=== PATIENT | female | born 1980 | race Caucasian/White ===

== ENCOUNTER 2019-01-17 10:48 | Outpatient (REF) | payer OTHER, SELFPAY ==
[2019-01-18 13:56] LABS: Chlamydia Result Negative (Negative); GC Result Negative (Negative); Specimen Description CERVIX
== END 2019-01-17 11:08 ==
LOC: LBN 10:48
PROVIDERS: Visit Provider Nurse Practitioner Family
DX: Z11.3 Encounter for screening for infections with a predominantly sexual mode of transmission (principal)
CPT/HCPCS: 87491; 87591

== ENCOUNTER 2019-02-14 01:15 | Outpatient (CLI) | payer OTHER, SELFPAY ==
--- NOTE | 2019-02-14 10:00 | DI.MAMMO_ITS ---
EXAM: MG MAMMO SCREENING CLINICAL HISTORY: Screening,z12.39 TECHNIQUE: Bilateral full field digital CC and MLO mammographic images were obtained with 3D tomosyn thesis and utilizing computer aided detection (CAD). COMPARISON: No previous for comparison. This is a baseline examination. FINDINGS: Masses/Architectural Distortion: There is a well-circumscribed nodule in the upper-outer quadrant of the left breast. This should be further evaluated with additional views of the left breast and left breast ultrasound. Microcalcifications: No suspicious pleomorphic-type are seen. Skin Thickening/Nipple Retraction: None. IMPRESSION: 1. Well-circumscribed nodule in the upper outer quadrant of the left breast. This area should be fur ther evaluated with a spot compression view and a left breast ultrasound. BI-RADS Cat 0 - Assessment Incomplete: Need additional imaging evaluation Breast Density - Category C - Heterogeneously dense The mammogram demonstrates the patient's breast tissue is dense. Dense breast tissue is very common a nd is not abnormal but dense breast tissue can make it harder to find cancer on a mammogram. Also, de nse breast tissue may increase their breast cancer risk. This information about the result of the [facility] mogram report was provided to the patient to raise their awareness. Use this report when you speak wi th the patient about their risks for breast cancer, which includes their family history. At that time , you may recommend for more screening tests (Ultrasound or MRI) as they might be useful based on the ir risk. A negative radiographic report should not delay biopsy if a dominant or clinically suspicious mass is present. Up to ten percent of cancers are not identified on mammography. A negative report may reinforce clinical impression. Adenosis and dense breasts may obscure an underlying neoplasm. False positive reports average 6 to 10%. Patient will receive a letter notifying them of these results.
== END 2019-02-14 01:35 ==
PROVIDERS: Visit Provider Nurse Practitioner Family
DX: Z12.31 Encounter for screening mammogram for malignant neoplasm of breast (principal); R92.8 Other abnormal and inconclusive findings on diagnostic imaging of breast
CPT/HCPCS: 77063; 77067

== ENCOUNTER 2019-02-16 00:34 | Outpatient (CLI) | payer OTHER, SELFPAY ==
--- NOTE | 2019-02-16 10:00 | DI.US_ITS ---
EXAM: US BREAST LT LIMITED and additional views of the left breast CLINICAL HISTORY: NODULE UPPER OUTER QUAD LT BREAST, US RECOMMENDED TECHNIQUE: Ultrasound performed using standard protocol. Additional mammographic views of the left breast were obtained. COMPARISON: Priors for comparison FINDINGS: Left mammogram: Additional mammographic views of the left breast again shown an obscured, well-circumscribed nodule i n the upper-outer quadrant of the left breast. Left breast ultrasound: There is a 1.8 cm simple cyst at the 2 o'clock position of the left breast, 5 cm from the nipple. Th is would correspond to the mammographic abnormality. No suspicious solid mass is identified. IMPRESSION: 1. 1.8 cm simple cyst in the left breast corresponding to the mammographic abnormality. 2. No evidence for malignancy. Yearly mammography is recommended. BI-RADS Cat 2 - Benign Findings Breast Density - Category C - Heterogeneously dense The findings were discussed with the patient on the date of the examination.
== END 2019-02-16 00:54 ==
PROVIDERS: Visit Provider Nurse Practitioner Family
DX: Z12.31 Encounter for screening mammogram for malignant neoplasm of breast (principal); R92.8 Other abnormal and inconclusive findings on diagnostic imaging of breast; N63.21 Unspecified lump in the left breast, upper outer quadrant; N60.02 Solitary cyst of left breast
CPT/HCPCS: 76642; 77063; 77067

== ENCOUNTER 2020-01-23 16:03 | Outpatient (REF) | payer OTHER, SELFPAY ==
--- NOTE | 2020-01-23 15:45 | PAPFT_PTH ---
PATIENT: Dania Traylor LOC: [facility] U#:[id number] AGE/SX: 39/F ROOM: RE01/23/[address]: ANUSHKA Benton : 1980 BED: DIS: 01/23/2020 SPEC #: [id number] RECD: 01/23/20 18:29 STATUS: DAVID RERichard #: [id number] BRADY: 01/23/20 15:[address]: Fatimah Macdonald DEPT: [facility] Cytology RECD BY: Milagros Neil Tissues: 1 - CX/ENDOCX FOR PAP SMEARS Procedures: PAP THIN PREP/UVM Screening HPV DNA PROBE Comments: [id number]
== END 2020-01-23 16:23 ==
LOC: LBN 16:03
PROVIDERS: Visit Provider Nurse Practitioner Family
DX: Z12.4 Encounter for screening for malignant neoplasm of cervix (principal); Z11.51 Encounter for screening for human papillomavirus (HPV); Z97.5 Presence of (intrauterine) contraceptive device
CPT/HCPCS: 88142; 87624

== ENCOUNTER 2020-02-24 04:23 | Outpatient (CLI) | payer OTHER, SELFPAY ==
--- NOTE | 2020-02-24 | DI.MAMMO_ITS ---
EXAM: MG MAMMO SCREENING CLINICAL HISTORY: SCREENING,Z12.39 TECHNIQUE: Bilateral full field digital CC and MLO mammographic images were obtained with 3D tomosyn thesis and utilizing computer aided detection (CAD). COMPARISON: Available for comparison. FINDINGS: Masses/Architectural Distortion: Stable well-circumscribed mass in the upper-outer quadrant of the le ft breast previously shown to be a cyst. No suspicious masses. Microcalcifications: No suspicious pleomorphic-type are seen. Skin Thickening/Nipple Retraction: None. IMPRESSION: 1. No significant interval change with no specific features of malignancy noted. 2. Unless there is more urgent need, screening mammography is recommended, as per [employer] guidelines. BI-RADS Category 2 - Benign Findings Breast Density - Category C - Heterogeneously dense The mammogram demonstrates the patient's breast tissue is dense. Dense breast tissue is very common a nd is not abnormal but dense breast tissue can make it harder to find cancer on a mammogram. Also, de nse breast tissue may increase their breast cancer risk. [facility] the patient to raise their awareness. Use this report when you speak wi th the patient about their risks for breast cancer, which includes their family history. At that time , you may recommend for more screening tests (Ultrasound or MRI) as they might be useful based on the ir risk. A negative radiographic report should not delay biopsy if a dominant or clinically suspicious mass is present. Up to ten percent of cancers are not identified on mammography. A negative report may reinforce clinical impression. Adenosis and dense breasts may obscure an underlying neoplasm. False positive reports average 6 to 10%. Patient will receive a letter notifying them of these results.
== END 2020-02-24 04:43 ==
PROVIDERS: PCP Family Medicine; Visit Provider Nurse Practitioner Family
DX: Z12.31 Encounter for screening mammogram for malignant neoplasm of breast (principal); N60.02 Solitary cyst of left breast
CPT/HCPCS: 77063; 77067

== ENCOUNTER 2021-01-14 00:41 | Outpatient (CLI) | payer OTHER, SELFPAY ==
--- NOTE | 2021-01-14 07:00 | DI.MAMMO_ITS ---
Exam(s) MAMMO DIAGNOSTIC BI EXAM: MAMMO DIAGNOSTIC BI CLINICAL HISTORY: Dense breast tissue. lump 3 o'clock, left brEAST,N63.0. TECHNIQUE: Unilateral spot mammographic images were obtained with 3D tomosynthesis technique and uti lizing computer aided detection (CAD). COMPARISON: Prior mammograms dating back to 2018, the most recent being February 2020. FINDINGS: Fibroglandular tissue pattern is again noted be dense, this decreasing the sensitivity mammogram for finding in underlying lesions. Towards the lateral aspect of the left breast there is a noncalcified lobulated nodule measuring appr oximately 2.9 by 2.4 cm, located 5 cm in from the nipple, slightly more prominent on the prior study. Ultrasound recommended. No other obvious mammographic findings in left breast. No significant focal findings in the right breast. No new malignant-appearing microcalcification nano ups in either breast. No new architectural distortion or skin thickening-traction IMPRESSION: Dense bilateral fibroglandular tissue. 29 x 24 millimeter asymmetric density left breast. This finding is shown to be a simple cyst on ultrasound exam performed 01/15/2021. See that separate ultrasound report. Appropriate follow-up is repeat breast ultrasound in 6 months. At that time I recommend that this be a bilateral ultrasound study given the density of her fibroglandular tissue. The patient was informed of the findings and follow-up recommendations prior to leaving the [facility]. BI-RADS Category 3 - 6 month - Probably Benign Finding: Recommend follow-up mammography in 6 months Breast Density - Category C - Heterogeneously dense Breast density Category C or D implies that the patient has dense breast tissue. Dense breast tissue can make it harder to find cancer on a mammogram. Dense breast tissue is also associated with an incr eased risk of breast cancer. This information about the result of the mammogram report was provided to the patient to raise their awareness. Use this report when you speak with the patient about their risks for breast cancer, which includes their family history. At that time, you may recommend additional screening tests (Ultrasoun d or MRI) as these tests may add significant information. A negative radiographic report should not delay biopsy if a dominant or clinically suspicious mass is present. Up to ten percent of cancers are not identified on mammography. A negative report may reinforce clinical impression. Adenosis and dense breasts may obscure an underlying neoplasm. False positive reports average 6 to 10%. Patient will receive a letter notifying them of these results.
== END 2021-01-14 01:01 ==
PROVIDERS: PCP Physician Assistant; Visit Provider Obstetrics & Gynecology
DX: R92.8 Other abnormal and inconclusive findings on diagnostic imaging of breast (principal); N63.21 Unspecified lump in the left breast, upper outer quadrant
CPT/HCPCS: 77062; 77066; G0279

== ENCOUNTER 2021-09-02 08:26 | Emergency (ER) | payer BC, SELFPAY ==
[2021-09-02 08:30] VITALS: BP 136/64; PULSE 74; RESP 16; TEMP 36.8; O2SAT 100
--- NOTE | 2021-09-02 09:16 | ED.GENADUL_ITS ---
Discharge Plan Disposition Patient Disposition: HOME Condition: Good Discharge Details Clinical Impression: Back pain Primary Care Provider: Chapo Smith ED Provider: Milagros Nolan Home Meds and New Rx's Prescriptions: New cyclobenzaprine 10 mg tablet 10 mg PO BID PRNQty: 10 0RF ondansetron HCl 4 mg tablet 4 mg PO Q6H PRNQty: 10 0RF Continued Mirena 20 mcg/24 hours (5 yrs) 52 mg intrauterine device 1 device IY ONCE clotrimazole-betamethasone 1-0.05 % cream 1 applic topical BID 10 Days Qty: 15 2RF One Daily For Women 1 EACH tablet 1 ea PO DAILY Discharge Instructions Instructions: Back Pain (ED) Additional Instructions: Take ibuprofen and Tylenol as needed for pain Take Zofran as needed for nausea and vomiting Take Flexeril as needed for musculoskeletal pain Take oxycodone sparingly, you may take this if you have severe pain, it is addictive and you should not drive for 8 hours after taking please follow-up with your primary care physician for reassessment in 24 to 48 hours and return earlier should you have new or worsening complaints Medical Decision Making Patient appears well, she is in no acute distress and her lab are reassuring Urinalysis does not show evidence of infection, will send for culture CT abdomen and pelvis do not show evidence of acute abnormality, suspect musculoskeletal etiology of pain Dextran for muscle relaxants will continue to take ibuprofen and Tylenol Recheck in 24 to 48 hours recommended Return precautions discussed and patient expressed understanding Afebrile and nontoxic HPI General Date/Time Provider Initiated Documentation: 09/02/21 08:27 . HPI Narrative: This otherwise healthy 41-year-old female presents with report of nausea for the past 2 weeks and left flank pain that started on of this week. Patient states that is constant pain throughout the day and at night reportedly feels like contractions. Denies known exacerbating or alleviating factors. Denies prior history of similar symptoms in the past. Denies any radiation of pain. Denies hepatitis C. Denies fever or chills. Denies hematuria Does report urinary frequency. No midline back pain, no history of IV drug abuse. Related Data Home Medications Medication Instructions Recorded Confirmed hvluqsjp-ykwf-pjp-folic acid 18 1 ea PO DAILY 12/02/12 09/02/21 mg-0.4 mg tablet (One Daily For Women) levonorgestrel 20 mcg/24 hours (7 1 device intrauterine ONCE 01/17/19 09/02/21 yrs) 52 mg intrauterine device (Mirena) clotrimazole-betamethasone 1 1 applic topical BID 10 days #15 01/23/20 09/02/21 %-0.05 % topical cream grams cyclobenzaprine 10 mg tablet 10 mg PO BID PRN #10 tabs 09/02/21 ondansetron HCl 4 mg tablet 4 mg PO Q6H PRN #10 tabs 09/02/21 Previous Rx's Medication Instructions Recorded clotrimazole-betamethasone 1 1 applic topical BID 10 days #15 01/23/20 %-0.05 % topical cream grams cyclobenzaprine 10 mg tablet 10 mg PO BID PRN #10 tabs 09/02/21 ondansetron HCl 4 mg tablet 4 mg PO Q6H PRN #10 tabs 09/02/21 Allergies Allergy/AdvReac Type Severity Reaction Status Date / Time sulfamethoxazole Allergy Intermediate RASH, Verified 09/02/21 08:34 [From Bactrim] YEAST INFECTION trimethoprim [From Bactrim] Allergy Intermediate RASH, Verified 09/02/21 08:34 YEAST INFECTION amoxicillin Allergy Verified 09/02/21 08:34 hydrocodone AdvReac Severe made me Verified 09/02/21 08:34 freak out General Stated Complaint: FlankPain IDRIS: 4 Review of Systems All systems reviewed & are unremarkable except as noted in HPI and below PFSH All Active Problems (Updated 09/02/21 @ 10:17 by VIVIAN Rolon) Back pain (Acute) Breast lump in female (Acute) 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 Father IBD (inflammatory bowel disease) Social History Smoking/Tobacco Use Status: Never Smoking risk assessment performed?: Yes Alcohol Intake: current Alcohol Intake frequency: holidays/special occasions o nly Alcohol type: beer and wine Drug use: Never Substance use type: does not use Current gender identity: female Seatbelt use: always Do you feel safe at home: Yes Do you feel safe in your relationship?: Yes Female Reproductive History Menstrual control method: progestin IUCD History History 1 Para Hx # Term Pregnancies 1 Multiple births Hx # Pregnancies Ectopic pregnancies AB induced Hx Number of Living Children AB spontaneous Exam Const General: cooperative, comfortable and no acute distress Eyes Sclera: sclerae normal Resp Effort & Inspection: normal respiratory effort Cardio Rate: regular rate Rhythm: regular rhythm GI Other: No abdominal bruit or pulsatile mass No CVA tenderness, no left upper quadrant tenderness No rashes or lesions Back/Spine/Pelvis Other: No paraspinal tenderness No midline tenderness Skin General skin exam: no rashes or lesions noted Neuro General: patient alert and patient oriented x3 Motor: strength 5/5 throughout Sensory Exam: no sensory deficits noted Other: Negative straight leg raise bilaterally Extrem Other: Distal pulses intact Course Vital Signs Vital signs: Vital Signs Temperature 36.8 C 09/02/21 08:30 Pulse 74 09/02/21 08:30 Respiratory Rate 16 09/02/21 08:30 Blood Pressure 136/64 09/02/21 08:30 Pulse Oximetry 100 09/02/21 08:30 Temperature 36.8 C 09/02/21 08:30 Temperature Source Temporal Artery Scan 09/02/21 08:30 Pulse 74 09/02/21 08:30 Respiratory Rate 16 09/02/21 08:30 Respiratory Effort Non-Labored 09/02/21 08:33 Blood Pressure 136/64 09/02/21 08:30 Blood Pressure Position Sitting 09/02/21 08:30 Pulse Oximetry 100 09/02/21 08:30 Oxygen Delivery Method Room Air 09/02/21 08:30 Oxygen Flow Rate 0 09/02/21 08:30 Pain Level 8 09/02/21 08:56 PAWSS Have you Been Recently Intoxicated or Drunk Within the Last 30 days?: No Have you Ever Experienced Previous Episodes of Alcohol Withdrawal?: No Have you ever Experienced Withdrawal Seizures?: No Have you ever Experienced Delirium Tremens(DT)s?: No Have you ever undergone Alcohol Rehabilitation Treatment (i.e, inpt ot outpatient treatment programs)?: No Have you ever Experienced Blackouts?: No Have you ever Combined Alcohol with other Downers within the last 90 days?: No Have you ever Combined Alcohol with any other Substance of Abuse during the last 90 days?: No Positive Blood Alcohol level on Presentation? [PCS.BAL]: No Evidence of Increased Autonomic Activity (i.e. HR>120, tremor, sweating, agitation, nausea)?: No Result: 0
[2021-09-02 09:18] LABS: Bilirubin Negative (Negative); Blood Trace-intact (Negative); Clarity Clear (Clear); Glucose Negative (Negative); Ketones Negative (Negative); Leukocyte Esterase Trace (Negative); Nitrite Negative (Negative); Specific Gravity 1.015 (1.005-1.025); Urobilinogen 0.2 EU/dL (Up TO 0.2)
[2021-09-02 09:25] LABS: Bacteria Negative HPF (Negative); C & S Indicated? Yes; Casts Negative LPF (Negative); Crystals Negative HPF (Negative); Epithelial Cells Rare HPF (Negative); Mucus Negative (Negative); RBC 0-2 HPF (0-2); WBC 0-2 HPF (0-5)
[2021-09-02] MEDS: Lactated Ringers 1,000 ML 1000 ML IV (09:26)
[2021-09-02] MEDS: Ondansetron 4 MG/2 ML VIAL IVP (09:26)
[2021-09-02 09:28] LABS: Abs Immature Grans 0.01 10^3/uL (0.0-0.06); Absolute Basophil Count 0.04 10^3/uL (0.0-0.2); Absolute Eosinophil Count 0.09 10^3/uL (0.0-0.7); Absolute Lymphocyte Count 1.82 10^3/uL (1.2-3.4); Absolute Monocyte Count 0.45 10^3/uL (0.1-0.8); Absolute Neutrophil Count 3.52 10^3/uL (1.2-6.7); Basophils % 0.7; Eosinophils % 1.5; HCT 44.3 % (36.0-46.0); HGB 14.6 g/dL (11.2-15.7); Immature Grans % 0.2; Lymphocytes % 30.7; MCH 29.7 pg (27.0-33.0); MCV 90 fL (80-95); MPV 10.9 fL (8.0-11.0); Monocytes % 7.6; Neutrophils % 59.3; Platelet Count 209 10^3/uL (130-400); RBC 4.91 10^6/uL (3.93-5.22); RDW 12.5 % (11.7-14.6); RDW-SD 41.5 fL; WBC 5.93 10^3/uL (4.4-10.8)
--- NOTE | 2021-09-02 09:39 | DI.CT_ITS ---
Exam(s) CT ABDOMEN PELVIS WO EXAM: CT ABDOMEN PELVIS WO CLINICAL HISTORY: left flank pain. TECHNIQUE: Imaging Protocol: Axial computed tomography images with coronal and sagittal reformatted images were created and reviewed. COMPARISON: No priors for comparison. FINDINGS: ABDOMEN: Lung Bases: Normal where visualized. Liver: Normal density. No measurable mass. Gallbladder and biliary tract: No radiodense calculus or biliary ductal dilation. Pancreas: Normal density, no abnormal calcifications or inflammatory process. Spleen: Normal. Kidneys: Normal size, contour and axis.No radiodense stones or obstructive uropathy. No masses seen. Adrenal glands: No mass is seen. Lymph nodes: Within normal limits. Abdominal Aorta: Abdominal portion non-dilated. PELVIS: Bladder:Symmetric distention, no gross wall thickening. Bowel: No obstruction or bowel wall thickening. Appendix is unremarkable. Peritoneal cavity: There is a trace amount of free fluid in the pelvis which may be physiologic. No free air. Reproductive organs: There is an IUD in good position. Bones: Within normal limits. Soft Tissues: Within normal limits. IMPRESSION: No acute abdominal or pelvic process. RADIATION DOSE DELIVERED: 750.59mGy.cm Total DLP DATA REPOSITORY: All CT scans at this facility are submitted to the National Radiology Data Registry (NRDR) Dose Index Registry (DIR) with the [employer] (ACR). RADIATION OPTIMIZATION: All CT scans at this facility use at least one of these dose optimization te chniques: automated exposure control; mA and/or kV adjustment per patient size (includes targeted exa ms where dose is matched to clinical indication); or iterative reconstruction.
[2021-09-02 09:41] LABS: ALT 26 U/L (14-59); AST 16 U/L (15-37); Albumin 4.2 g/dL (3.4-5.0); Alkaline Phosphatase 52 U/L (46-116); Anion Gap 8.8 mmol/L (3-11); BUN 9 mg/dL (7-18); Bilirubin, Total 0.6 mg/dL (0.2-1.0); CO2 25.2 mmol/L (21.0-32.0); CREATININE 0.9 mg/dL (0.55-1.02); Calcium 8.7 mg/dL (8.5-10.1); Chloride 110 mmol/L (98-107); Glucose 119 mg/dL (74-106); Lipase 76 U/L (73-393); Potassium 3.8 mmol/L (3.5-5.1); Sodium 144 mmol/L (136-145); Total Protein 7.3 g/dL (6.4-8.2)
--- NOTE | 2021-09-02 09:55 | DI.VRAD_ITS ---
PROCEDURE INFORMATION: Exam: CT Abdomen And Pelvis Without Contrast Exam date and time: 09/02/2021 9:32 AM Age: 41 years old Clinical indication: Abdominal pain; Patient HX: Left flank pain since . TECHNIQUE: Imaging protocol: Computed tomography of the abdomen and pelvis without contrast. Radiation optimization: All CT scans at this facility use at least one of these dose optimization techniques: automated exposure control; mA and/or kV adjustment per patient size (includes targeted exams where dose is matched to clinical indication); or iterative reconstruction. COMPARISON: No relevant prior studies available. FINDINGS: Tubes, catheters and devices: Intrauterine device is present. Liver: Normal. No mass. Gallbladder and bile ducts: Normal. No calcified stones. No ductal dilation. Pancreas: Normal. No ductal dilation. Spleen: Normal. No splenomegaly. Adrenal glands: Normal. No mass. Kidneys and ureters: Normal. No hydronephrosis. Stomach and bowel: Unremarkable. No obstruction. No mucosal thickening. Appendix: No evidence of appendicitis. Intraperitoneal space: Unremarkable. No free air. No significant fluid collection. Vasculature: Unremarkable. No abdominal aortic aneurysm. Lymph nodes: Unremarkable. No enlarged lymph nodes. Urinary bladder: Unremarkable as visualized. Reproductive: Unremarkable as visualized. Bones/joints: Unremarkable. No acute fracture. Soft tissues: Unremarkable. IMPRESSION: No acute findings are evident. Dictated and Authenticated by: Piotr Hernández MD. Ordering:SHABBIR Linares MD
[2021-09-02 10:16] VITALS: BP 122/75; PULSE 62; RESP 16; TEMP 37.2; O2SAT 100
[2021-09-02 10:34] VITALS: BP 122/75; PULSE 62; RESP 16; TEMP 37.2; O2SAT 100
== END 2021-09-02 10:39 | disposition home or self-care (01) ==
PROVIDERS: Emergency Provider Physician Assistant; PCP Physician Assistant
DX: M54.9 Dorsalgia, unspecified (principal); R10.9 Unspecified abdominal pain
CPT/HCPCS: 36415; 80053; 81025; 83690; 96361; 96374; 99284; 74176; 81003; 81015; 85025; 87086; J2405

== ENCOUNTER → 2022-02-04 02:17 | Outpatient (CLI) | payer BC, SELFPAY ==
--- NOTE | 2022-02-04 15:15 | DI.MAMMO_ITS ---
Exam(s) MAMMO SCREENING EXAM: MAMMO SCREENING CLINICAL HISTORY: screening. TECHNIQUE: Bilateral full field digital CC and MLO mammographic images were obtained with 3D tomosyn thesis and utilizing computer aided detection (CAD). COMPARISON: Prior mammograms were reviewed. Prior ultrasound examinations also reviewed. FINDINGS: Fibroglandular tissue pattern is again noted be dense, this somewhat decreasing the sensitivity of th e mammogram for finding hidden underlying lesions. There are no new significant findings in left breast. Nodular density in the left breast has signifi cantly decreased in size, consistent with cyst. In the right breast on the 3D MLO imaging there is a subtle suggestion of a new asymmetric density-no dule which measures approximately the 1.5 x 1 0.1 cm and is located approximately 3 cm in from the ni pple. Spot compression view/ultrasound recommended. There are no malignant-appearing microcalcification groups is region. There is no significant architectural distortion nor skin thickening-retraction. IMPRESSION: Dense bilateral fibroglandular tissue. No obvious radiographic evidence of malignancy in left breast . New asymmetric density right breast as described above. Right breast spot compression MLO view an d possible ultrasound recommended. BI-RADS Category 0 - Assessment Incomplete: Need additional imaging evaluation Breast Density - Category C - Heterogeneously dense Breast density Category C or D implies that the patient has dense breast tissue. Dense breast tissue can make it harder to find cancer on a mammogram. Dense breast tissue is also associated with an incr eased risk of breast cancer. This information about the result of the mammogram report was provided to the patient to raise their awareness. Use this report when you speak with the patient about their risks for breast cancer, which includes their family history. At that time, you may recommend additional screening tests (Ultrasoun d or MRI) as these tests may add significant information. A negative radiographic report should not delay biopsy if a dominant or clinically suspicious mass is present. Up to ten percent of cancers are not identified on mammography. A negative report may reinforce clinical impression. Adenosis and dense breasts may obscure an underlying neoplasm. False positive reports average 6 to 10%. Patient will receive a letter notifying them of these results.
== END ==
PROVIDERS: PCP Physician Assistant; Visit Provider Obstetrics & Gynecology
DX: Z12.31 Encounter for screening mammogram for malignant neoplasm of breast (principal); R92.8 Other abnormal and inconclusive findings on diagnostic imaging of breast
CPT/HCPCS: 77063; 77067

== ENCOUNTER → 2022-02-07 01:05 | Outpatient (CLI) | payer BC, SELFPAY ==
--- NOTE | 2022-02-07 | DI.US_ITS ---
Exam(s) MAMMO SCREEN CALL BACK UNI US BREAST RT COMPLETE EXAM: MAMMO SCREEN CALL BACK UNI-RIGHT AND COMPLETE RIGHT BREAST ULTRASOUND CLINICAL HISTORY: F/U MAMMO, NEW ASYMMETRIC SCHEDULING,NODULE. TECHNIQUE: Unilateral spot mammographic images obtained with 3D tomosynthesisand utilizing computer aided detection (CAD). . Complete right breast Ultrasound was also performed, including all 4 quadrants, the retroareolar krishan on, and the ipsilateral axilla. COMPARISON: Prior mammograms were reviewed. This additional imaging was performed due to findings described on the recent screening mammogram of 02/04/2022. FINDINGS: DIAGNOSTIC MAMMOGRAM: Additional mammographic views performed todaya somewhat equivocal. We proceeded with ultrasound. COMPLETE RIGHT BREAST ULTRASOUND: Ultrasound performed today reveals a solitary finding at the 6 o'clock position which corresponds to the finding on the mammogram.. This has the appearance of a 9 by 3 millimeter septated cyst. There are no other focal ultrasound findings in all 4 quadrants. Scanning of the ipsilateral axilla reveals no significant adenopathy. IMPRESSION: 1. Benign-appearing finding at the 6 o'clock position of the right breast as described above. Appropriate follow-up , as discussed by myself with the patient today, is repeat right breast imaging in 6 months. The patient was informed of these findings and recommendations prior to leaving the department today. BI-RADS Category 3 - 6 month - Probably Benign Finding: Recommend follow-up mammography in 6 months Breast Density - Category C - Heterogeneously dense Breast density Category C or D implies that the patient has dense breast tissue. Dense breast tissue can make it harder to find cancer on a mammogram. Dense breast tissue is also associated with an incr eased risk of breast cancer. This information about the result of the mammogram report was provided to the patient to raise their awareness. Use this report when you speak with the patient about their risks for breast cancer, which includes their family history. At that time, you may recommend additional screening tests (Ultrasoun d or MRI) as these tests may add significant information. A negative radiographic report should not delay biopsy if a dominant or clinically suspicious mass is present. Up to ten percent of cancers are not identified on mammography. A negative report may reinforce clinical impression. Adenosis and dense breasts may obscure an underlying neoplasm. False positive reports average 6 to 10%. Patient will receive a letter notifying them of these results.
== END ==
PROVIDERS: PCP Physician Assistant; Visit Provider Obstetrics & Gynecology
DX: Z12.31 Encounter for screening mammogram for malignant neoplasm of breast (principal); R92.8 Other abnormal and inconclusive findings on diagnostic imaging of breast
CPT/HCPCS: 76642; 77063; 77067

== ENCOUNTER 2022-08-05 02:32 | Outpatient (CLI) | payer BC, SELFPAY ==
--- NOTE | 2022-08-05 | DI.MAMMO_ITS ---
Exam(s) MG MAMMO DIAGNOSTIC UNI US BREAST RT COMPLETE EXAM: MG MAMMO DIAGNOSTIC UNI -RIGHT AND COMPLETE RIGHT BREAST ULTRASOUND CLINICAL HISTORY: F/U ABNL MAMMO, R92.8,RT BREAST CYST. TECHNIQUE: Both CC and MLO right breast mammographic images were obtained with 3D tomosynthesis tech nique and utilizing computer aided detection (CAD). Also performed complete right breast ultrasound including all 4 quadrants as well as the axillary reg ion COMPARISON: Prior mammograms were reviewed, the most recent being February 2022. Prior ultrasound 02/07/2022 also reviewed FINDINGS: DIAGNOSTIC RIGHT BREAST MAMMOGRAM: The fibroglandular tissue is again noted be dense. no obvious discernible masses nor malignant-appea ring microcalcification groups. No new architectural distortion or skin thickening-traction. COMPLETE RIGHT BREAST ULTRASOUND: The previously described finding at the 6 o'clock position is again noted, measuring 7 x 4 millimeter s and has the appearance of a benign microcyst. There is a new finding at the 12 o'clock position which is a 5 x 3 millimeter benign microcyst. No solid lesions seen in all 4 quadrants. Scanning of the right axilla is negative for adenopathy. IMPRESSION: 1. Dense fibroglandular tissue. No radiographic evidence of malignancy. 2. Two benign microcysts seen at 12 o'clock and 6 o'clock positions on ultrasound. No solid lesions Appropriate follow-up as discussed by myself with the patient today is to keep her on a yearly mammog elisa schedule, this implying that her next bilateral mammogram would be in 6 months. At that time elizabeth ateral breast ultrasound should be performed, given the density of her fibroglandular tissue and the fact that there are findings on ultrasound exam which are not visible on 3D mammography. The patient was informed of the findings and follow-up recommendations by myself prior to leaving the department today. BI-RADS Category 2 - Benign Findings Breast Density - Category C - Heterogeneously dense Breast density Category C or D implies that the patient has dense breast tissue. Dense breast tissue can make it harder to find cancer on a mammogram. Dense breast tissue is also associated with an incr eased risk of breast cancer. This information about the result of the mammogram report was provided to the patient to raise their awareness. Use this report when you speak with the patient about their risks for breast cancer, which includes their family history. At that time, you may recommend additional screening tests (Ultrasoun d or MRI) as these tests may add significant information. A negative radiographic report should not delay biopsy if a dominant or clinically suspicious mass is present. Up to ten percent of cancers are not identified on mammography. A negative report may reinforce clinical impression. Adenosis and dense breasts may obscure an underlying neoplasm. False positive reports average 6 to 10%. Patient will receive a letter notifying them of these results.
== END 2022-08-05 02:52 ==
PROVIDERS: PCP Physician Assistant; Visit Provider Obstetrics & Gynecology
DX: R92.8 Other abnormal and inconclusive findings on diagnostic imaging of breast (principal)
CPT/HCPCS: 76642; 77061; 77065; G0279

== ENCOUNTER → 2023-02-05 01:04 | Outpatient (CLI) | payer BC, SELFPAY ==
--- NOTE | 2023-02-05 08:27 | DI.US_ITS ---
Exam(s) US BREAST RT LIMITED MG MAMMO SCREENING EXAM: MG MAMMO SCREENING and U/S breast RT limited CLINICAL HISTORY: screening,Z12.39. TECHNIQUE: Craniocaudal and mediolateral oblique Full Field Digital Mammography views of the bilater al breast with Computer Aided Diagnosis followed by Tomosynthesis and right breast ultrasound. COMPARISON: Comparison is made with prior examinations. FINDINGS: Mammography/Tomosynthesis: Masses/Architectural Distortion: None seen. Microcalcifictions: No suspicious pleomorphic-type are seen. Skin Thickening/Nipple Retraction: None. Limited right breast US: Echotexture: Normal appearance of the glandular tissue. Shadowing: No suspicious foci. Cyst: There are stable cysts again seen at the 6 and 12 o'clock positions. They are unchanged. Solid lesions: None seen. Ductal dilation: None. IMPRESSION: 1. No evidence of malignancy is noted. 2. Unless there is more urgent need, follow-up screening mammography is recommended, as per [place] [employer] guidelines. 3. The findings were discussed with the patient on the date of the examination. BI-RADS Category 2 - Benign Findings Breast Density - Category C - Heterogeneously dense Breast density Category C or D implies that the patient has dense breast tissue. Dense breast tissue can make it harder to find cancer on a mammogram. Dense breast tissue is also associated with an incr eased risk of breast cancer. This information about the result of the mammogram report was provided to the patient to raise their awareness. Use this report when you speak with the patient about their risks for breast cancer, which includes their family history. At that time, you may recommend additional screening tests (Ultrasoun d or MRI) as these tests may add significant information. A negative radiographic report should not delay biopsy if a dominant or clinically suspicious mass is present. Up to ten percent of cancers are not identified on mammography. A negative report may reinforce clinical impression. Adenosis and dense breasts may obscure an underlying neoplasm. False positive reports average 6 to 10%. Patient will receive a letter notifying them of these results.
== END ==
PROVIDERS: PCP Physician Assistant; Visit Provider Obstetrics & Gynecology
DX: Z12.31 Encounter for screening mammogram for malignant neoplasm of breast; R82.89 Other abnormal findings on cytological and histological examination of urine
CPT/HCPCS: 76642; 77063; 77067

== ENCOUNTER 2023-09-07 12:33 | Outpatient (REF) | payer BC, SELFPAY ==
[2023-09-07 15:48] LABS: HCT 43.7 % (36.0-46.0); HGB 15.1 g/dL (11.2-15.7); MCH 30.8 pg (27.0-33.0); MCHC 34.6 % (32.0-36.0); MCV 89 fL (80-95); MPV 12.3 fL (8.0-11.0); Platelet Count 247 10^3/uL (130-400); RDW 12.6 % (11.7-14.6); RDW-SD 41.3 fL; WBC 7.14 10^3/uL (4.4-10.8)
[2023-09-07 16:01] LABS: ALT 30 U/L (14-59); AST 17 U/L (15-37); Albumin 4.4 g/dL (3.4-5.0); Alkaline Phosphatase 56 U/L (46-116); Anion Gap 7.4 mmol/L (3-11); BUN 11 mg/dL (7-18); Bilirubin, Total 0.8 mg/dL (0.2-1.0); CO2 28.6 mmol/L (21.0-32.0); CREATININE 0.9 mg/dL (0.55-1.02); Calculated LDL 88 mg/dL (<100); Chloride 105 mmol/L (98-107); Cholesterol 155 mg/dL (<200); Estimated GFR 80.34 (mL/min/1.73m2); Glucose 89 mg/dL (74-106); HDL Cholesterol 58 mg/dL (40-60); Potassium 4.3 mmol/L (3.5-5.1); Sodium 141 mmol/L (136-145); Total Protein 7.4 g/dL (6.4-8.2); Triglyceride 47 mg/dL (<150)
[2023-09-07 16:57] LABS: Hemoglobin A1C 5.7 % (<5.7)
== END 2023-09-07 12:34 | disposition home or self-care (01) ==
LOC: NCHCN 12:33
PROVIDERS: PCP Physician Assistant; Visit Provider Physician Assistant
DX: Z13.1 Encounter for screening for diabetes mellitus (principal); Z13.220 Encounter for screening for lipoid disorders; K21.9 Gastro-esophageal reflux disease without esophagitis
CPT/HCPCS: 80053; 80061; 85027; 83036

== ENCOUNTER 2023-12-28 06:13 | Day surgery (SDC) | payer BC, SELFPAY ==
[2023-12-28 06:38] VITALS: BP 119/62; PULSE 66; RESP 16; TEMP 36.8; O2SAT 100
[2023-12-28] MEDS: Lactated Ringers 1,000 ML 80 ML IV (06:59)
--- NOTE | 2023-12-28 07:00 | W.ANESPRE ---
General Info Date of Service Date Performed: 12/28/23 Height: 5 ft 2 in Weight: 68.9 kg Body Mass Index (BMI): 27.8 Surgical Procedure: Operation Date: 12/28/23 07:35 Proposed Procedure Side Surgeon julia Faust MD Meds Allergies and Home Medications Allergies Allergy/AdvReac Type Severity Reaction Status Date / Time sulfamethoxazole (From Allergy Intermediate RASH, Verified 12/28/23 06:34 Bactrim) YEAST INFECTION trimethoprim (From Bactrim) Allergy Intermediate RASH, Verified 12/28/23 06:34 YEAST INFECTION amoxicillin Allergy Unknown Itching Verified 12/28/23 06:34 hydrocodone AdvReac Severe made me Verified 12/28/23 06:34 freak out Home Medication ?Medication ?Instructions ?Recorded pvtmkoou-ydhx-rso-folic acid 18 1 ea PO DAILY 12/02/12 mg-0.4 mg tablet (One Daily For Women) levonorgestrel 21 mcg/24 hr (up to 1 device intrauterine ONCE 01/17/19 8 years) 52 mg intrauterine device (Mirena) L. acidophilus 5 mg-digestive 1 cap PO DAILY 11/18/23 enzymes combo no.5 250 mg capsule (Probiotic-Digestive Enzymes) bisacodyl 5 mg tablet,delayed 5 mg PO ONCE #4 tabs 12/10/23 release (Dulcolax (bisacodyl)) polyethylene glycol 3350 17 17 g PO ONCE #238 grams 12/10/23 gram/dose oral powder Current Visit Medications: Current Medications Generic Name Dose Route Start Last Admin Trade Name Freq PRN Reason Stop Dose Admin Ringer's Solution 1,000 mls @ 80 mls/hr 12/28/23 06:00 IV 12/28/23 23:59 INFUSION CLEMENT IV Miscellaneous Supplies 1 each 12/28/23 06:00 Iv Access IV 12/28/23 23:59 DIRECTED CLEMENT Sodium Chloride 0 ml 12/28/23 06:00 Normal Saline Flush 10 Ml Syr IV 12/28/23 23:59 PRN PRN Sodium Chloride 0 ml 12/28/23 06:00 Normal Saline 10 Ml Vial IJ 12/28/23 23:59 DIRECTED PRN Sterile Water 0 ml 12/28/23 06:00 Water,Injection,Sterile 10 Ml Vial IJ 12/28/23 23:59 DIRECTED PRN PFSH Active Problems Active Problems: Problem Status Onset Code GERD (gastroesophageal reflux disease) Chronic K21.9 Abnormal mammogram of right breast Acute R92.8 Breast lump in female Acute 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 Contraceptive, surveillance, intrauterine device Acute 12/02/12 Z30.431 IUD surveillance Acute 12/02/12 Z30.431 Environmental allergies Acute 09/04/15 Z91.09 Acne, unspecified Acute L70.9 Surgical History Surgical History Tonsillectomy 04/22 Tobacco Smoking/Tobacco Use Status: Never Passive smoking exposure: No Alcohol Alcohol Intake: current Alcohol intake frequency: 0-2 drinks per day Alcohol type: beer and wine Substance Use Substance use: Never Substance use type: does not use Prental History History 1 Para Hx # Term Pregnancies 1 Multiple births Hx # Pregnancies Ectopic pregnancies AB induced Hx Number of Living Children AB spontaneous Vital Signs and Lab Results Vital Signs Most Recent Vital Signs in EMR: Most Recent Vital Signs Temp Pulse Resp BP Pulse Ox 36.8 C 66 16 119/62 100 12/28/23 06:38 12/28/23 06:38 12/28/23 06:38 12/28/23 06:38 12/28/23 06:38 Lab Results Blood Type / Crossmatch: No Data to Display Complete Blood Count: No Data to Display Complete Metabolic Panel: No Data to Display Liver Function Panel: No Data to Display Coagulation Panel: No Data to Display Cardiac Panel: No Data to Display Arterial Blood Gas: No Data to Display Venous Blood Gas: No Data to Display Pancreas Panel: No Data to Display Thyroid Panel: No Data to Display Infectious Disease: No Data to Display Blood Cultures: No Data to Display Toxicology Panel: No Data to Display Panel: No Data to Display Anesthesia Assessment and Plan Anesthesia History Personal History: No History of Anesthesia Complications Family History: No Family History of Anesthesia Complications Exercise Tolerance Exercise Tolerance: Metabolic Equivalents>4 Pertinent Negatives Pertinent Negatives: No Major Cardiovascular Symptoms or Complaints, No Major Pulmonary Symptoms or Complaints and No History of CVA/TIA Cardiac & Pulmonary Exam Cardiac Exam: Normal S1/S2 Heart Sounds Pulmonary Exam: Clear Bilateral Breath Sounds Implantable Cardiac Device Does patient have a Pacemaker or an ICD?: No Airway Exam Known Difficult Airway: No Mallampati Class: 2 Mouth Opening: Normal (> 3cm) Thyromental Distance: Greater than 3 cm Neck Range of Motion: Full ROM Neck Circumference: Normal Teeth Condition: Normal Dentition ASA Classification ASA Score: ASA 2 Emergency Case?: No NPO Status NPO Status: NPO Clears >2 hours, Solids >8 hours Status Status: Negative HCG Anesthesia Plan Resuscitation Status: Full Code Anesthesia Technique: General Anesthesia Airway Planned: Natural Airway Monitors Used: Standard Monitors
[2023-12-28 07:02] VITALS: BMI 27.8
--- NOTE | 2023-12-28 08:00 | W.COLOREPORT ---
Date of service: 12/28/23 Time of Service: 08:00 Colonoscopy Report Procedure Description: PROCEDURES PERFORMED: 1. Colonoscopy PREOPERATIVE DIAGNOSIS: Screening colonoscopy POSTOPERATIVE DIAGNOSIS: Normal terminal ileum, normal colon, normal rectum SURGEON: Trae Faust MD INDICATION FOR PROCEDURE: The patient is a 43-year-old woman due for her for screening colonoscopy. No symptoms. No increased risk factors. No family history. FINDINGS: Terminal ileum was normal. Colon was normal. No polyps. No diverticular disease. No hemorrhoid disease. SURVEILLANCE interval/FOLLOW-UP: 10 years SPECIMENS: None EBL: Minimal COMPLICATIONS: None QUALITY of prep: Excellent Procedure in detail: The patient gave written consent and was in agreement with the indications, the potential risks as well as the benefits of the procedure. They were taken to the endoscopy suite and laid in the left lateral decubitus position. A timeout was performed and anesthesia was administered which was tolerated well. I started the procedure. Digital rectal and visual examination was performed and grossly within normal limits. A well-lubricated flexible colonoscope was then introduced and passed without any notable difficulty all the way to the cecum identified by the ileocecal valve and the appendiceal orifice. The scope was then slowly withdrawn with the above-noted findings. The patient tolerated the procedure well and was taken to the PACU in hemodynamically stable condition.
[2023-12-28 08:01] VITALS: BP 106/66; PULSE 68; RESP 15; TEMP 36.4; O2SAT 98
--- NOTE | 2023-12-28 08:01 | W.PM.DSUDISC ---
Date of service: 12/28/23 Time of Service: 08:01 Discharge Plan Disposition Patient Disposition: Home Condition: Good Discharge Details Attending Provider: Prateek Faust Primary Care Provider: Chapo Smith Home Meds and New Rx's Prescriptions: No Action Mirena 20 mcg/24 hours (5 yrs) 52 mg intrauterine device 1 device IY ONCE bisacodyl [Dulcolax (bisacodyl)] 5 mg tablet,delayed release (DR/EC) 5 mg PO ONCE Qty: 4 0RF Rx Instructions: Take per colonoscopy instructions provided by ordering providers office polyethylene glycol 3350 17 gram/dose powder 17 g PO ONCE Qty: 238 0RF Rx Instructions: Take per colonoscopy instructions provided by ordering providers office One Daily For Women 1 EACH tablet 1 ea PO DAILY Probiotic-Digestive Enzymes 5-250 mg capsule 1 cap PO DAILY Discharge Instructions Additional Instructions: FINDINGS: There were no findings of concern today. Your small intestine, colon and rectum all appear very healthy. No inflammatory changes. Nothing concerning for cancer. No polyps. No diverticular disease. You should repeat another colonoscopy in 10 years. Stand Alone Forms: Colonoscopy Post Instructions Activity:: Activity as Tolerated Diet:: As Tolerated Discharge Orders Discharge Orders: Discharge Order (Routine); Ordered 12/28/23 Ordered By: Prateek Faust
[2023-12-28 08:19] VITALS: BP 115/72; PULSE 60; RESP 18; TEMP 36.4; O2SAT 100
--- NOTE | 2023-12-28 08:22 | W.ANESPOSTOP ---
Postoperative Evaluation Date, Time and Location Date Performed: 12/28/23 Time Performed: 08:14 Patient Location: Day Surgery Unit Vital Signs Most Recent Imported Vital Signs: Most Recent Vital Signs Temp Pulse Resp BP Pulse Ox 36.4 C L 60 18 115/72 100 12/28/23 08:19 12/28/23 08:19 12/28/23 08:19 12/28/23 08:19 12/28/23 08:19 Pain Score Most Recent Pain Score: Most Recent Pain Score Pain Level 0 12/28/23 06:38 Assessment Mental Status: Awake (Alert & Oriented to Patient Baseline) Airway and Respiratory Function: Patent airway with normal (patient baseline) respiratory exam Cardiovascular Function: Hemodynamically Stable Hydration Status: Adequately Hydrated Nausea & Vomiting: No Nausea or Vomiting Pain: Pt. Denies Any Pain Peripheral Nerve Block: Patient did not receive a nerve block
== END 2023-12-28 08:31 | disposition home or self-care (01) ==
PROVIDERS: PCP Physician Assistant; Visit Provider Student in an Organized Health Care Education/Training Program
PROC: 0DJD8ZZ Inspection of Lower Intestinal Tract, Via Natural or Artificial Opening Endoscopic (ICD-10-PCS; CPT 45378; principal; 2023-12-28 07:30)
DX: Z12.11 Encounter for screening for malignant neoplasm of colon (principal)
CPT/HCPCS: 45378; 00123; J2704

== ENCOUNTER 2024-02-10 01:44 | Outpatient (CLI) | payer BC, SELFPAY ==
--- NOTE | 2024-02-10 17:00 | DI.MAMMO_ITS ---
Exam(s) MAMMO SCREENING EXAM: MAMMO SCREENING CLINICAL HISTORY: screening TECHNIQUE: Bilateral full field digital CC and MLO mammographic images were obtained with 3D tomosyn thesis and utilizing computer aided detection (CAD). COMPARISON: Available for comparison. FINDINGS: Masses/Architectural Distortion: None seen. Microcalcifications: No suspicious pleomorphic-type are seen. Skin Thickening/Nipple Retraction: None. IMPRESSION: 1. No significant interval change with no specific features of malignancy noted. 2. Unless there is more urgent need, screening mammography is recommended, as per [place] [employer] guidelines. BI-RADS Category 1 - Negative Breast Density - Category C - Heterogeneously dense Breast density category C or D implies that the patient has dense breast tissue. Dense breast tissue is very common and is not abnormal but dense breast tissue can make it harder to find cancer on a ma mmogram. Also, dense breast tissue may increase their breast cancer risk. This information about the result of the mammogram report was provided to the patient to raise their awareness. Use this report when you speak with the patient about their risks for breast cancer, which includes their family hist ory. At that time, you may recommend for more screening tests (Ultrasound or MRI) as they might be us eful based on their risk. A negative radiographic report should not delay biopsy if a dominant or clinically suspicious mass is present. Up to ten percent of cancers are not identified on mammography. A negative report may reinforce clinical impression. Adenosis and dense breasts may obscure an underlying neoplasm. False positive reports average 6 to 10%. Patient will receive a letter notifying them of these results.
== END 2024-02-10 02:04 ==
LOC: DI 01:44
PROVIDERS: PCP Physician Assistant; Visit Provider Obstetrics & Gynecology
DX: Z12.31 Encounter for screening mammogram for malignant neoplasm of breast (principal); R92.333 Mammographic heterogeneous density, bilateral breasts
CPT/HCPCS: 77063; 77067

== ENCOUNTER 2025-02-09 10:30 | Outpatient (REF) | payer BC, SELFPAY ==
--- NOTE | 2025-02-09 09:55 | PAPFT_PTH ---
PATIENT: Dania Traylor LOC: [facility] U#:[id number] AGE/SX: 44/F ROOM: RE02/09/[address]: Juanita Hunter DO : 1980 BED: DIS: 02/09/2025 SPEC #: [id number] RECD: 02/09/25 13:02 STATUS: DAVID RE #: [id number] BRADY: 02/09/25 09:[address]: Juanita Hunter DEPT: [facility] Cytology RECD BY: Milagros Neil ENTERED: 02/09/25 13:02 SP TYPE: PAPFT OTHR DR: Chapo Smith Tissues: 1 - CX/ENDOCX FOR PAP SMEARS Procedures: PAP THIN PREP/UVM Screening HPV DNA PROBE Comments: [id number] (HPV 16 & 18/45)
== END 2025-02-09 10:31 | disposition home or self-care (01) ==
LOC: LBN 10:30
PROVIDERS: PCP Physician Assistant; Visit Provider Obstetrics & Gynecology
DX: Z12.4 Encounter for screening for malignant neoplasm of cervix (principal)
CPT/HCPCS: 88142; 87624

== ENCOUNTER → 2025-02-14 00:31 | Outpatient (CLI) | payer BC, SELFPAY ==
--- NOTE | 2025-02-14 07:15 | DI.MAMMO_ITS ---
Exam(s) MAMMO SCREENING EXAM: MAMMO SCREENING CLINICAL HISTORY: screening,Z12.39. TECHNIQUE: Bilateral full field digital CC and MLO mammographic images were obtained with 3D tomosynthesis and utilizing computer aided detection (CAD). COMPARISON: Prior mammograms were reviewed. Prior ultrasound February 2023 also reviewed FINDINGS: There has been no significant change in the appearance and distribution of the fibroglandular tissue which is again noted to be heterogeneously dense. There are no new spiculated masses nor malignant appearing microcalcification groups. There is no significant architectural distortion nor skin thickening-retraction. IMPRESSION: No radiographic evidence of malignancy. BI-RADS Category 1 - Negative Breast Density - Category C - The breast are heterogeneously dense, which may obscure small masses. Breast density Category C or D implies that the patient has dense breast tissue. Dense breast tissue can make it harder to find cancer on a mammogram. Dense breast tissue is also associated with an increased risk of breast cancer. This information about the result of the mammogram report was provided to the patient to raise their awareness. Use this report when you speak with the patient about their risks for breast cancer, which includes their family history. At that time, you may recommend additional screening tests (Ultrasound or MRI) as these tests may add significant information. A negative radiographic report should not delay biopsy if a dominant or clinically suspicious mass is present. Up to ten percent of cancers are not identified on mammography. A negative report may reinforce clinical impression. Adenosis and dense breasts may obscure an underlying neoplasm. False positive reports average 6 to 10%. Patient will receive a letter notifying them of these results.
== END ==
LOC: DI 00:31
PROVIDERS: PCP Physician Assistant; Visit Provider Obstetrics & Gynecology
DX: Z12.31 Encounter for screening mammogram for malignant neoplasm of breast (principal); R92.323 Mammographic fibroglandular density, bilateral breasts
CPT/HCPCS: 77063; 77067